=== PATIENT | female | born 1990 ===

== ENCOUNTER → 2023-10-27 | Outpatient (CLI) | payer OTHER | END | disposition home or self-care (01) | LOC: RAH 09:51 → EEVIPCON 11:00 | PROVIDERS: ATTEND Student in an Organized Health Care Education/Training Program | DX: N60.01 Solitary cyst of right breast (principal); D48.61 Neoplasm of uncertain behavior of right breast | CPT/HCPCS: 76641 ==

== ENCOUNTER → 2024-05-29 | Outpatient (CLI) | payer OTHER | END | disposition home or self-care (01) | LOC: EEVIPCON 10:00 → RAH 10:04 | PROVIDERS: ATTEND Student in an Organized Health Care Education/Training Program | DX: D48.61 Neoplasm of uncertain behavior of right breast (principal); R92.323 Mammographic fibroglandular density, bilateral breasts | CPT/HCPCS: 77066 ==